=== PATIENT | female | born 2005 ===

== ENCOUNTER 2025-08-28 13:41 | Emergency (ER) | payer BC ==
[2025-08-28] MEDS ORDERED: Sodium Chloride 0.9% 10 ML Syringe FLUSH PRN (13:48)
[2025-08-28] MEDS: Iopamidol 612 MG/ML 100 ML Bottle IVPUSH ONE (14:42)
[2025-08-28] MEDS: Sodium Chloride 0.9% 10 ML Syringe FLUSH PRN (14:42)
[2025-08-28 15:02] LABS: BASOPHILS ABSOLUTE AUTO 0.1 K/mm3 (0.0-0.2); BASOPHILS PERCENT AUTO 0.5 % (0.0-1.0); EOSINOPHILS ABSOLUTE AUTO 0.1 K/mm3 (0.0-0.4); EOSINOPHILS PERCENT AUTO 0.7 % (0.0-6.0); IMMATURE GRAN ABSOLUTE AUTO 0.07 K/mm3 (0.00-0.05); IMMATURE GRAN PERCENT AUTO 0.5 % (0.0-0.4); LYMPHOCYTES ABSOLUTE AUTO 1.5 K/mm3 (1.0-4.8); LYMPHOCYTES PERCENT AUTO 9.9 % (24.0-44.0); MEAN PLATELET VOLUME 9.9 fl (9.4-12.3); MONOCYTES ABSOLUTE AUTO 0.7 K/mm3 (0.0-0.8); MONOCYTES PERCENT AUTO 4.9 % (0.0-8.0); NEUTROPHILS ABSOLUTE AUTO 12.3 K/mm3 (1.8-7.7); NEUTROPHILS PERCENT AUTO 83.5 % (41.0-71.0); NRBC ABSOLUTE 0.00 (0.00-0.02); NRBC PERCENT 0.0 % (0.0-0.2); PLATELET COUNT,PLT 213 K/mm3 (150-400); RED BLOOD CELL COUNT 4.44 M/mm3 (4.10-5.30); WHITE BLOOD CELL COUNT,WBC 14.75 K/mm3 (3.9-11.3)
[2025-08-28] MEDS ORDERED: Naloxone 0.4 MG/ML SDV IVPUSH PRN (15:12)
[2025-08-28] MEDS: Ondansetron 4 MG/2 ML SDV IVPUSH ONE (15:20)
[2025-08-28 15:26] LABS: LACTIC ACID 0.7 mmol/L (0.4-2.0)
[2025-08-28 15:27] LABS: A/G RATIO 1.4 (1-2); ALANINE AMINOTRANSFERASE,ALT 18 U/L (14-59); ASPARTATE AMNIOTRANSFERASE,AST 20 U/L (15-37); BILIRUBIN TOTAL 0.6 mg/dL (0.2-1.0); BLOOD UREA NITROGEN,BUN 8 mg/dL (7-18); CARBON DIOXIDE,CO2 23 mEq/L (21-32); CHLORIDE,CL 108 mEq/L (98-107); CREATININE 0.7 mg/dL (0.55-1.02); ESTIMATED GFR 127 mL/min (>60); GLUCOSE RANDOM 79 mg/dL (70-99); POTASSIUM,K 3.7 mEq/L (3.5-5.1); PROTEIN TOTAL,TP 6.9 g/dl (6.4-8.2); SODIUM,NA 141 mEq/L (136-145); TROPONIN I HIGH SENSITIVITY 5 pg/mL (<=51)
[2025-08-28] MEDS: Lidocaine 2% 11 ML Jelly Filled Syringe TOP ONE (15:35)
[2025-08-28] MEDS: Lidocaine 2% 11 ML Jelly Filled Syringe ONE (15:56)
[2025-08-28 15:57] LABS: APPEARANCE,URINE SLT CLOUDY (Clear); GLUCOSE,URINE NEGATIVE (Negative); OCCULT BLOOD,URINE 3+ (Negative)
[2025-08-28 16:10] LABS: SQUAMOUS EPITHELIAL CELLS,UR 0-5 /hpf (0-5)
== END 2025-08-28 16:15 ==
LOC: JD.ED 13:41
DX: S22.060A Wedge compression fracture of T7-T8 vertebra, initial encounter for closed fracture (principal); I60.8 Other nontraumatic subarachnoid hemorrhage; W55.12XA Struck by horse, initial encounter
CPT/HCPCS: 36415; 51702; 70450; 71260; 72125; 72128; 72131; 74177; 80053; 81001; 83605; 83690; 84484; 84703; 85025; 96374; 96375; 99285; J2270; J2405; Q9967